=== PATIENT | male | born 1995 | race American Indian/Alaskan Native ===

== ENCOUNTER 2021-06-24 16:46 | Emergency (ER) | payer OTHER, MEDICAID | END 2021-06-24 18:23 | disposition home or self-care (01) | LOC: JP.ED 16:46 | DX: S90.111A Contusion of right great toe without damage to nail, initial encounter (principal); W20.8XXA Other cause of strike by thrown, projected or falling object, initial encounter | CPT/HCPCS: 73630-RT; 99281; 99283-25 ==

== ENCOUNTER 2021-08-04 16:03 | Emergency (ER) | payer MEDICAID ==
[2021-08-04] MEDS ORDERED: Lidocaine 1% 5 ML VIAL INJECT ONE (17:50)
[2021-08-04] MEDS ORDERED: Sulfamethoxazole/Trimethoprim 800-160 MG Tab PO ONE (18:31)
[2021-08-04] MEDS ORDERED: Bacitracin Oint 1 GM U/D Packet TOP ONE (18:34)
== END 2021-08-04 19:11 | disposition home or self-care (01) ==
LOC: JP.ED 16:03
DX: L03.114 Cellulitis of left upper limb (principal)
CPT/HCPCS: 87070; 87205; 99281; 99283; A9270; 87077; 87186

== ENCOUNTER 2023-02-04 12:47 | Emergency (ER) | payer MEDICAID ==
[2023-02-04 13:49] LABS: BASOPHILS ABSOLUTE AUTO 0.04 K/uL (0.00-0.10); BASOPHILS PERCENT AUTO 0.5 % (0.1-1.3); EOSINOPHILS ABSOLUTE AUTO 0.05 K/uL (0.00-0.40); EOSINOPHILS PERCENT AUTO 0.7 % (0.0-5.4); HEMATOCRIT 44.6 % (38.4-49.7); HEMOGLOBIN 15.3 g/dL (12.9-16.9); IMMATURE GRAN ABSOLUTE AUTO 0.03 K/uL (0.00-0.23); IMMATURE GRAN PERCENT AUTO 0.4 % (0.0-0.7); LYMPHOCYTES PERCENT AUTO 45.6 % (11.4-47.7); MEAN CORPUSCULAR HEMOGLOBIN 29.7 pg (31.6-35.5); MEAN CORPUSCULAR HGB CONC 34.3 g/dL (31.6-35.5); MEAN CORPUSCULAR VOLUME 86.6 fL (81.4-99.0); MONOCYTES ABSOLUTE AUTO 0.53 K/uL (0.20-0.90); MONOCYTES PERCENT AUTO 6.9 % (3.3-12.6); NEUTROPHILS ABSOLUTE AUTO 3.53 K/uL (1.0-7.6); NEUTROPHILS PERCENT AUTO 45.9 % (40.0-78.1); PLATELET COUNT,PLT 379 K/uL (130-375); RED BLOOD CELL COUNT 5.15 M/uL (4.14-5.76); WHITE BLOOD CELL COUNT,WBC 7.7 K/uL (3.2-11.0)
[2023-02-04 14:11] LABS: A/G RATIO 1.2 (1.2-2.2); ALANINE AMINOTRANSFERASE,ALT 30 U/L (12-78); ALBUMIN 4.1 g/dL (3.4-5.0); ALKALINE PHOSPHATASE 109 U/L (46-116); ASPARTATE AMNIOTRANSFERASE,AST 20 U/L (15-37); BILIRUBIN TOTAL 0.3 mg/dL (0.2-1.0); BLOOD UREA NITROGEN,BUN 13 mg/dL (7-18); CALCIUM 8.6 mg/dL (8.5-10.1); CARBON DIOXIDE,CO2 27 mmol/L (21-32); CHLORIDE,CL 102 mmol/L (100-108); CREATININE 1.1 mg/dL (0.8-1.3); EST CRCL DRUG DOSING (CG) 107.44 mL/min; ESTIMATED GFR 94 mL/min (>60); GLUCOSE RANDOM 89 mg/dL (74-106); POTASSIUM,K 3.9 mmol/L (3.6-5.2); PROTEIN TOTAL,TP 7.6 g/dL (6.4-8.2); SODIUM,NA 139 mmol/L (140-148)
[2023-02-04 14:12] LABS: ANION GAP 13.9 mmol/L (5.0-14.0)
== END 2023-02-04 15:22 | disposition home or self-care (01) ==
LOC: JP.ED 12:47
DX: R10.31 Right lower quadrant pain (principal)
CPT/HCPCS: 36415; 74018; 74018-26; 80053; 83605; 85025; 99284